=== PATIENT | male | born 1995 | race Caucasian/White ===

== ENCOUNTER 2017-09-27 23:30 | Emergency (ER) | payer OTHER ==
[2017-09-27 23:34] VITALS: TEMP 97.9
--- NOTE | 2017-09-27 23:50 | EDPHY ---
H & P Stated Complaint: fell snowboarding Wednesday - Back pain Time Seen by Provider: 09/27/17 23:38 HPI/ROS: Chief Complaint: Fall, back pain HPI: 21-year-old male was snowboarding 2 days ago. Patient states on the last rung he fell backwards and landed on his back. He has had persistent back pain since, it is in the low back primary in the left hand side. Is worse when he moves around after being seated or lying down for long time. No numbness or weakness. He is ambulating without any difficulties. He has been taking Advil , 400 mg occasionally without any significant relief. No urinary problems. Pain is primarily in the left hand side. Is not radiate. No abdominal pain. No extremity pain or injury. ROS: 10 point Review of Systems is negative except as noted in the HPI. PMH: Denies Social History: No smoking, no alcohol, no recreational drug use Family History: non-contributory Physical Exam: Gen: Awake, Alert, No Distress HEENT: Nose: no rhinorrhea Eyes: PERRLA, EOMI Mouth: Moist mucosa Neck: Supple, no JVD Chest: nontender, lungs clear to auscultation Heart: S1, S2 normal, no murmur Abd: Soft, non-tender, no guarding Back: no CVA tenderness, moderate midline tenderness in the mid L2-L3 region, left-sided paraspinal muscle spasm noted reproducing presenting complaint. Mild left-sided SI joint tenderness. Pelvis is stable to AP and lateral compression. No iliac wing tenderness. No sepsis tenderness. Ext: no edema, non-tender Skin: no rash Neuro: CN II-XII intact, Sensation grossly intact, Strength 5/5 in bilateral upper and lower extremities - Personal History Current Tetanus/Diphtheria Vaccine: Yes - Medical/Surgical History Hx Asthma: No Hx Chronic Respiratory Disease: No Hx Diabetes: No Hx Cardiac Disease: No Hx Renal Disease: No Hx Cirrhosis: No Hx Alcoholism: No Hx HIV/AIDS: No Hx Splenectomy or Spleen Trauma: No Other PMH: denies - Social History Smoking Status: Never smoked Constitutional: Initial Vital Signs Temperature (C) 36.6 C 09/27/17 23:32 Heart Rate 76 09/27/17 23:32 Respiratory Rate 18 09/27/17 23:32 Blood Pressure 150/87 H 09/27/17 23:32 O2 Sat (%) 97 09/27/17 23:32 O2 Delivery Mode Room Air Allergies/Adverse Reactions: No Known Allergies Allergy (Verified 09/27/17 23:34) Home Medications: Medication Instructions Recorded NK [No Known Home Meds] 10/16/15 Medical Decision Making - Diagnostics Imaging Results: Imaging Impressions Lumbar Spine X-Ray 09/27/17 23:45 Impression: Minimal loss of height of L5 could reflect an age indeterminate compression deformity of uncertain but doubtful significance. Imaging: I viewed and interpreted images myself ED Course/Re-evaluation: X-ray results noted. Possible mild compression of L5 however this no wrist tenderness is. If it is acute it is a stable fracture. Will send him home on oral analgesia. Follow up with Orthopedics. Departure - Departure Disposition: Home, Routine, Self-Care Clinical Impression: Back pain Condition: Good Instructions: Back Pain (ED), Lower Back Exercises (ED), Ice Pack Application ( ED) Additional Instructions: Take ibuprofen, 600 mg, 3 times a day. You may also take acetaminophen, 1000 mg every 6 hours. You may replace the Lidoderm patch, 4%, every 24 hr Make sure to remain active. Did do not lay in bed or sit in a chair for long periods. It is important to remain active and keep your back moving in order to improve. Please see the attached back exercise instructions. Follow up with Orthopedics in about a week if symptoms are not improving. Referrals: NONE *PRIMARY CARE P,. [Primary Care Provider] - As per Instructions Rex Olmedo MD [Medical Doctor] - As per Instructions
[2017-09-28] MEDS ORDERED: LIDOCAINE 4%/MENTHOL 1% PATCH TD ONE (00:12)
[2017-09-28] MEDS ORDERED: IBUPROFEN 600 MG TAB PO ONE (00:12)
[2017-09-28 00:26] VITALS: BP 140/85; PULSE 78; RESP 20; O2SAT 98
== END 2017-09-28 00:25 | disposition home or self-care (01) ==
DX: S39.92XA Unspecified injury of lower back, initial encounter (principal); V00.311A Fall from snowboard, initial encounter; Y99.8 Other external cause status; Y93.23 Activity, snow (alpine) (downhill) skiing, snowboarding, sledding, tobogganing and snow tubing

== ENCOUNTER 2018-02-15 03:24 | Emergency (ER) | payer OTHER ==
[2018-02-15 03:29] VITALS: BP 119/68
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
[2018-02-15] MEDS ORDERED: IBUPROFEN 800 MG TAB PO ONE (03:34)
== END 2018-02-15 06:02 | disposition home or self-care (01) ==
PROC: 0HQ0XZZ Repair Scalp Skin, External Approach (ICD-10-PCS; principal; 2018-02-15)
DX: S01.01XA Laceration without foreign body of scalp, initial encounter (principal); Y09 Assault by unspecified means; Y92.89 Other specified places as the place of occurrence of the external cause; Y99.8 Other external cause status; Y93.01 Activity, walking, marching and hiking